=== PATIENT | male | born 1990 | race Caucasian/White ===

== ENCOUNTER 2016-12-14 21:34 | Emergency (ER) | payer MEDICAID ==
[~2016-12-14] VITALS: Ht 177.8 cm; Wt 67.4 kg
[2016-12-14 21:38] VITALS: BP 120/76
== END 2016-12-14 22:27 | disposition home or self-care (01) ==
LOC: ED 22:00
DX: S43.422A Sprain of left rotator cuff capsule, initial encounter (principal); G89.11 Acute pain due to trauma; F12.10 Cannabis abuse, uncomplicated; Y04.0XXA Assault by unarmed brawl or fight, initial encounter; Y93.89 Activity, other specified; Y99.8 Other external cause status; Y92.410 Unspecified street and highway as the place of occurrence of the external cause
CPT/HCPCS: 99281

== ENCOUNTER 2017-03-24 13:32 | Emergency (ER) | payer MEDICAID ==
[~2017-03-24] VITALS: Ht 175.3 cm; Wt 67.7 kg
[2017-03-24 13:34] VITALS: BP 144/78
[2017-03-24] MEDS ORDERED: DIPH,PERTUSS(ACELL),TET VAC/PF 0.5 ML IM-VACC ONE ×2 (13:52→14:00)
[2017-03-24] MEDS ORDERED: BACITRACIN ZINC OINT 500U/GM, 0.9 GM ONE (13:56)
== END 2017-03-24 13:59 | disposition home or self-care (01) ==
LOC: ED 13:53
DX: S61.213A Laceration without foreign body of left middle finger without damage to nail, initial encounter (principal); X50.1XXA Overexertion from prolonged static or awkward postures, initial encounter; Y93.89 Activity, other specified; Y92.009 Unspecified place in unspecified non-institutional (private) residence as the place of occurrence of the external cause; Y99.8 Other external cause status
CPT/HCPCS: 90471; 90715

== ENCOUNTER 2018-05-14 15:52 | Emergency (ER) | payer MEDICAID, OTHER ==
[~2018-05-14] VITALS: Ht 175.3 cm; Wt 69.7 kg
[2018-05-14] MEDS ORDERED: KETOROLAC 30 MG/1 ML ONE (16:06)
--- NOTE | 2018-05-14 16:11 | NUR ---
PT PRESENTS TO ED FOR LEFT ELBOW PAIN. PTAPEARS TO HAVE LEFT ELBOW DISLOCATION. PT STATES HE FELL ONTO OUTSTRETCHED AR. DENIES LOC OR MIDLINE SPINE PAIN. SMALL ABRASION TO CHIN NEUROVASCULAR INTACT DISTAL.
[2018-05-14] MEDS ORDERED: ETOMIDATE 20 MG/10 ML ONE (16:20)
[2018-05-14] MEDS ORDERED: KETOROLAC 30 MG/1 ML IV ONE (16:30)
[2018-05-14] MEDS ORDERED: ETOMIDATE 20 MG/10 ML IVPush ONE (16:30)
--- NOTE | 2018-05-14 17:02 | NUR ---
ERP TO BEDSIDE FOR REDUCTION OF LEFT ELBOW WITH PROCEDURAL SEDATION 1629. 10 MG ETOMIDATE GIVEN PER MD. PT SEDATED AND LEFT ELBOW REDUCED WITHOUT COMPLICATIONS. PT TOLERATED WELL AND VSS THROUGHOUT. 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 NEUROVASCULAR REMAINS INTACT.
--- NOTE | 2018-05-14 17:38 | NUR ---
RECEIVED REPORT FROM ARIADNA CAMPBELL. PT RESTING ON CHRISTIANE. NADN. INTERIANO.
[2018-05-14 17:39] VITALS: BP 109/69
--- NOTE | 2018-05-14 17:39 | NUR ---
REPORT TO LUKASZ ROSENTHAL
--- NOTE | 2018-05-14 18:06 | NUR ---
ORTHO AT BEDSIDE.
== END 2018-05-14 18:35 | disposition home or self-care (01) ==
LOC: ED 18:25
DX: S52.122A Displaced fracture of head of left radius, initial encounter for closed fracture (principal); W01.0XXA Fall on same level from slipping, tripping and stumbling without subsequent striking against object, initial encounter; Y93.89 Activity, other specified; Y92.89 Other specified places as the place of occurrence of the external cause; Y99.8 Other external cause status
CPT/HCPCS: 24600; 73070; 73080; 96374; 99285; J1885

== ENCOUNTER 2018-07-26 14:49 | Emergency (ER) | payer MEDICAID ==
[~2018-07-26] VITALS: Ht 177.8 cm; Wt 72.3 kg
--- NOTE | 2018-07-26 14:52 | NUR ---
CALLED FOR TRIAGE, PT NOT IN LOBBY, INFORMED REG GOING OUTSIDE TO SMOKE
[2018-07-26 14:55] VITALS: BP 121/82
--- NOTE | 2018-07-26 15:11 | NUR ---
PT STATES SPLINT THAT WAS PLACED DURING ELBOW SURGERY IS LOOSE AND PULLING DOWN. ALSO CONCERNED THAT WAITING ONE MORE WEEK FOR DRESSING CHANGE ON SURGERY FOLLOW UP IS TOO LONG AND HE IS CONCERNED.
--- NOTE | 2018-07-26 16:39 | NUR ---
TECH AT BEDSIDE REMOVING EXISTING SPLINT
== END 2018-07-26 16:59 | disposition home or self-care (01) ==
LOC: ED 16:39
DX: Z48.01 Encounter for change or removal of surgical wound dressing (principal); M96.89 Other intraoperative and postprocedural complications and disorders of the musculoskeletal system
CPT/HCPCS: 29105; 99283

== ENCOUNTER 2019-06-16 11:12 | Emergency (ER) | payer MEDICAID ==
[~2019-06-16] VITALS: Ht 177.8 cm; Wt 72.4 kg
[2019-06-16 11:16] VITALS: BP 115/81
--- NOTE | 2019-06-16 11:40 | NUR ---
CXR complete, awaiting results
--- NOTE | 2019-06-16 12:06 | NUR ---
Patient given discharge instructions and they have confirmed that they understand the instructions. Patient ambulatory with steady gait.
== END 2019-06-16 12:08 | disposition home or self-care (01) ==
LOC: ED 12:00
DX: J06.9 Acute upper respiratory infection, unspecified (principal); F17.200 Nicotine dependence, unspecified, uncomplicated; Z98.890 Other specified postprocedural states
CPT/HCPCS: 71046; 99283